=== PATIENT | male | born 1980 | race Caucasian/White ===

== ENCOUNTER → 2018-09-23 | Outpatient (CLI) | payer BC ==
[~2018-09-23] MED LIST: CEPH500 PO; RXHYDACE PO
== END | disposition home or self-care (01) ==
LOC: LAB SHORT 13:35 → LAB EV 13:35
DX: L08.9 Local infection of the skin and subcutaneous tissue, unspecified (principal)
CPT/HCPCS: 87070; 87075; 87147; 87205